=== PATIENT | male | born 1940 | race Caucasian/White ===

== ENCOUNTER → 2018-09-25 | Outpatient (CLI) | payer MEDICARE, OTHER | LOC: COL.RAD 10:09 | DX: E21.3 Hyperparathyroidism, unspecified (principal) | CPT/HCPCS: A9500 ==

== ENCOUNTER → 2018-10-30 | Outpatient (REF) | LOC: ZMSC 14:45 | DX: Z01.89 Encounter for other specified special examinations (principal) ==

== ENCOUNTER 2024-02-29 00:52 | Inpatient (IN) | payer MEDICARE, OTHER ==
[2024-02-29] VITALS (9 sets, daily range): BP systolic 106–138; BP diastolic 63–76; PULSE 58–84; TEMP 97.5–97.9
[~2024-02-29] VITALS: Ht 188 cm; Wt 81.1 kg
--- NOTE | 2024-02-29 03:20 | NUR ---
Patient arrived to the unit at this time with daughter. States he does have some pain but not much. Water provided. Assessment and Med rec complete. IV in left forearm flushes easily with no complications. Fall risk precautions put in place. All questions answered at this time. Oriented patient to room, bed, call light, phone, and bathroom. Call light and personal items in reach. Bed in low position and bed alarm on.
[2024-02-29] MEDS ORDERED: oxyCODONE 5 MG TAB PO PRN (04:00)
[2024-02-29] MEDS ORDERED: Vancomycin 1.5 GM,Special Dose/Pharmacy Prepared 1.5 GM in NS 250 ML IV SCH (04:15)
[2024-02-29] MEDS ORDERED: NS 1,000 ML IV SCH (04:15)
[2024-02-29] MEDS ORDERED: Ondansetron 4 MG/2 ML VIAL IV PRN (04:15)
[2024-02-29] MEDS ORDERED: Acetaminophen 325 MG TAB PO PRN ×2 (04:15)
--- NOTE | 2024-02-29 05:13 | NUR ---
Vancomycin Initial Dosing Pharmacy Note Ordering provider: Florinda Diaz E., MD Indication/duration: Foot wound with osteomyelitis Relevant comorbidities: Unk LABS: (From OSH) WBC = 13, SCr = 1.1 Recommendation: Will draw troughs and follow levels. Loading dose: 2 grams given at OSH 02/28/24 @ 23:10 Maintenance dose: 750 mg every 12 hours Trough goal: 15-20 ug/mL
[2024-02-29] MEDS ORDERED: Glucagon 1 MG VIAL IM PRN (05:45)
[2024-02-29] MEDS ORDERED: Dextrose (Glucose) 15 GM (4 x 3.75 GM) Chewable TABLET PACK PO PRN (05:45)
[2024-02-29] MEDS ORDERED: Dextrose 50% Water 25 GM/50 ML SYRINGE IV PRN (05:45)
--- NOTE | 2024-02-29 05:45 | NUR ---
Patient resting in bed with eyes closed. Respirations even and unlaborded. No signs of pain at this time. Call light and persoanl items in reach. Bed in low position and bed alarm on.
[2024-02-29 06:41] LABS: BASO % 0.3 % (0.0-2.0); EOS # 0.1 K/mm3 (0.0-0.7); EOS % 0.4 % (0.0-4.0); GRAN % 67.8 % (42.2-75.2); HEMOGLOBIN 11.8 g/dl (13.5-18.0); LYMPH # 2.3 K/mm3 (1.2-3.4); MEAN CELL VOLUME 85 fl (80.0-100.0); MEAN CORPUSCULAR HEMOGLOBIN 29 pg (27-31); MEAN CORPUSCULAR HGB CONC 34 g/dl (33.0-37.0); MEAN PLATELET VOLUME 9.2 fl (7.4-10.4); MONO # 1.3 K/mm3 (0.1-0.6); MONO % 11.2 % (1.7-9.3); PLATELET COUNT 377 K/mm3 (130-400); RED BLOOD COUNT 4.04 M/mm3 (4.20-5.60)
[2024-02-29 06:47] LABS: HEMATOCRIT 34.4 % (42.0-52.0)
[2024-02-29 06:54] LABS: ERYTHROCYTE SEDIMENTATION RATE 90 mm/hr (0-30)
[2024-02-29 07:00] LABS: ALBUMIN 2.8 g/dL (3.4-4.8); BILIRUBIN,TOTAL 0.6 mg/dL (0.2-1.2); CALCIUM 9.4 mg/dL (8.4-10.2); POTASSIUM 3.6 mEq/L (3.5-4.5); TOTAL PROTEIN 7.3 g/dl (6.2-8.1)
[2024-02-29] MEDS ORDERED: HCTZ 25MG TAB25 MG PO (07:03)
[2024-02-29] MEDS ORDERED: ZYLOPRIM 100MG100 MG PO (07:03)
[2024-02-29] MEDS ORDERED: LIPITOR 10MG10 MG PO (07:04)
[2024-02-29] MEDS ORDERED: KAPSPARGO SPRIN25 MG PO (07:05)
[2024-02-29] MEDS ORDERED: NIASPAN 500MG500 MG PO (07:37)
[2024-02-29] MEDS ORDERED: GLUCOPHAGE500 MG/TAB PO (07:38)
[2024-02-29] MEDS ORDERED: ASPIRIN 81M81 MG/TA2 PO (07:38)
[2024-02-29] MEDS ORDERED: MULTI-VITAMIN W1 TA1 PO (07:39)
[2024-02-29] MEDS ORDERED: EPA FISH OIL1 SGL PO (07:39)
[2024-02-29] MEDS ORDERED: JARDIANCE25 PO (07:40)
[2024-02-29] MEDS ORDERED: TRULICITY3 MG/0.5 M SQ (07:43)
[2024-02-29] MEDS ORDERED: Insulin Lispro (HumaLOG) SQ SCH (08:00)
[2024-02-29] MEDS ORDERED: Sennosides/Docusate 8.6-50 MG TAB PO SCH (09:00)
--- NOTE | 2024-02-29 11:10 | NUR ---
Patient alert and oriented x4. Shift assessment complete this morning. Patient resting in bed with eyes closed, arouses to voice. Denies increase in pain. Zosyn infusing per orders through left forearm IV as well as NS. Right foot is swollen and red, noted to appear curved. Patient states the curvature came with the infection. Closed ulcers/popped blisters noted to right foot. Abrasion noted to left ankle with bandaid covering it. Call light within reach, all needs met at this time.
--- NOTE | 2024-02-29 11:54 | NUR ---
toll test worker met with pt to discuss discharge planning. He reports to lives with his , Ladonna [phone] in [place]. Pt states his PCP is Mansi Curiel and obtains medications from [facility] with no difficulties. He reports to be independent with ADLS and uses no DME. Pt does not have a DPOA-HC and declines one, but accepted a copy to review. Pt reports he is "unsteady due to his foot problems." PT/OT pending Discharge Plan: tbd after evals
[2024-02-29] MEDS ORDERED: GLUCOPHAGE XR500 M1 PO (12:40)
[2024-02-29] MEDS ORDERED: Gadoterate 20 ML VIAL IV ONE (13:12)
--- NOTE | 2024-02-29 19:37 | NUR ---
Call received after patient went to MRI. Orders obtained from Sowmya Lambert for surgery tomorrow on patient's right foot. Orders entered into computer. Discussed NPO status at midnight with patient, patient verbalized understanding. Denies pain. Sitting up in recliner with call light in reach, Vancomycin infusing per orders through left forearm IV with NS. All needs met at this time.
--- NOTE | 2024-02-29 20:45 | NUR ---
Patient resting in bed. States he has some pain but denies needs for pain meds at this time. Snacks provided. Assessment complete. IV in left forearm infusing with no complications. Call light and personal items in reach. Bed in low position and bed alarm on.
[2024-02-29] MEDS ORDERED: Niacin SA 250 MG CAP PO SCH (21:00)
[2024-02-29] MEDS ORDERED: Atorvastatin 10 MG TAB PO SCH (21:00)
[2024-03-01] VITALS (17 sets, daily range): BP systolic 112–152; BP diastolic 62–92; PULSE 61–88; TEMP 97.1–98.4
[2024-03-01 05:58] LABS: BASO # 0.1 K/mm3 (0.0-0.2); BASO % 0.5 % (0.0-2.0); EOS # 0.1 K/mm3 (0.0-0.7); EOS % 0.9 % (0.0-4.0); GRAN # 5.9 K/mm3 (1.4-6.5); GRAN % 57.4 % (42.2-75.2); HEMOGLOBIN 11.2 g/dl (13.5-18.0); LYMPH # 3.1 K/mm3 (1.2-3.4); LYMPH % 30.4 % (20.0-51.0); MEAN CELL VOLUME 87 fl (80.0-100.0); MEAN CORPUSCULAR HEMOGLOBIN 29 pg (27-31); MEAN CORPUSCULAR HGB CONC 34 g/dl (33.0-37.0); MONO % 9.6 % (1.7-9.3); PLATELET COUNT 347 K/mm3 (130-400); RED BLOOD COUNT 3.81 M/mm3 (4.20-5.60); REDCELL DISTRIBUTION WIDTH-CV 14.3 % (11.5-14.5)
[2024-03-01 06:02] LABS: HEMATOCRIT 33.2 % (42.0-52.0)
[2024-03-01 06:17] LABS: CREATININE, serum 1.06 mg/dL (0.72-1.25); POTASSIUM 3.5 mEq/L (3.5-4.5)
--- NOTE | 2024-03-01 06:25 | NUR ---
Patient resting in bed with eyes closed. Respirations even and unlaborded. No signs of pain or distress at this time. No changes over night. Call light and personal items in reach. Bed in low position and bed alarm on.
[2024-03-01] MEDS ORDERED: LR 1,000 ML IV SCH (07:45)
[2024-03-01] MEDS ORDERED: Lidocaine PF 2% (20 MG/ML) 5 ML VIAL ONE (09:34)
[2024-03-01] MEDS ORDERED: Ondansetron 4 MG/2 ML VIAL ONE (10:57)
[2024-03-01] MEDS ORDERED: Ondansetron 4 MG/2 ML VIAL IV PRN ×2 (11:00→11:30)
[2024-03-01] MEDS ORDERED: Naloxone 0.4 MG/ML VIAL IV PRN (11:00)
[2024-03-01] MEDS ORDERED: oxyCODONE 5 MG TAB PO PRN (11:00)
[2024-03-01] MEDS ORDERED: fentaNYL 50 MCG/ML 1 ML SYRINGE/VIAL [PACU/SDC ONLY] IV PRN (11:30)
[2024-03-01] MEDS ORDERED: hydrALAZINE 20 MG/ML 1 ML VIAL IV PRN (11:30)
[2024-03-01] MEDS ORDERED: HYDROmorphone 1 MG/1 ML SYRINGE [PACU/SDC ONLY] IV PRN (11:30)
[2024-03-01] MEDS ORDERED: Meperidine 50 MG/ML 1 ML VIAL IV PRN (11:30)
--- NOTE | 2024-03-01 11:54 | NUR ---
Patient alert and oriented x4. Denies pain. Maintained NPO status this morning for surgery to right foot. PICC line orders obtained from Ortho, advanced IV services called. PICC placed to right upper arm. Tolerating activity well. Right foot continues to be red, swollen, and appears crooked. Patient left unit for surgery around 1015.
--- NOTE | 2024-03-01 13:03 | NUR ---
Patient returned to unit around 1220. VSS. Patient alert and oriented x4, states he feels groggy. Tolerating sips of water well. Able to follow verbal commands. Stable on room air. NS infusing with Zosyn per orders through PICC line. SCD on left leg. Right leg cast is CDI, extremity elevated with ice on it. Patient denies pain. Call light within reach, all needs met at this time. Bed alarm on.
[2024-03-01 14:42] LABS: BASO # 0.1 K/mm3 (0.0-0.2); BASO % 0.6 % (0.0-2.0); EOS # 0.1 K/mm3 (0.0-0.7); EOS % 0.7 % (0.0-4.0); GRAN # 6.6 K/mm3 (1.4-6.5); GRAN % 62.8 % (42.2-75.2); HEMOGLOBIN 10.9 g/dl (13.5-18.0); LYMPH # 2.9 K/mm3 (1.2-3.4); LYMPH % 27.6 % (20.0-51.0); MEAN CELL VOLUME 90 fl (80.0-100.0); MEAN CORPUSCULAR HEMOGLOBIN 29 pg (27-31); MEAN CORPUSCULAR HGB CONC 32 g/dl (33.0-37.0); MEAN PLATELET VOLUME 8.8 fl (7.4-10.4); MONO # 0.8 K/mm3 (0.1-0.6); MONO % 7.2 % (1.7-9.3); PLATELET COUNT 373 K/mm3 (130-400); RED BLOOD COUNT 3.82 M/mm3 (4.20-5.60); REDCELL DISTRIBUTION WIDTH-CV 14.4 % (11.5-14.5)
[2024-03-01 14:44] LABS: HEMATOCRIT 34.2 % (42.0-52.0)
--- NOTE | 2024-03-01 16:26 | NUR ---
Patient remains stable and A&Ox4. Denies pain or need for pain medication. Splint to right foot remains CDI. Patient expressed concern over getting back to baseline following recovery, due to his recovery declining from surgery in January. Patient does not like not bearing weight on right foot, but was encouraged to follow doctor's orders in order to heal properly. Verbalized understanding. Call light within reach, all needs met at this time.
--- NOTE | 2024-03-01 20:00 | NUR ---
Patient resting in bed. Denies any pain or needs at this time. Assessment complete. IV in left forearm flushes easily with no complications. PICC line infusing with no complications. Call light and personal items in reach. Bed in low position and bed alarm on.
[2024-03-02] VITALS (9 sets, daily range): BP systolic 133–145; BP diastolic 73–86; PULSE 64–89; TEMP 97.5–98.3
--- NOTE | 2024-03-02 02:00 | NUR ---
Hospitalist Melvin called for patient stating he has been constipated and would like something to help him go. Recieved orders for one time dose of 40g Lactulose. Med given
[2024-03-02] MEDS ORDERED: Lactulose Oral Soln 10 GM/15 ML CUP PO ONE (02:15)
[2024-03-02 06:16] LABS: HEMOGLOBIN 10.9 g/dl (13.5-18.0); MEAN CELL VOLUME 87 fl (80.0-100.0); MEAN CORPUSCULAR HEMOGLOBIN 29 pg (27-31); MEAN CORPUSCULAR HGB CONC 33 g/dl (33.0-37.0); MEAN PLATELET VOLUME 8.7 fl (7.4-10.4); PLATELET COUNT 393 K/mm3 (130-400); RED BLOOD COUNT 3.74 M/mm3 (4.20-5.60); REDCELL DISTRIBUTION WIDTH-CV 14.2 % (11.5-14.5)
--- NOTE | 2024-03-02 06:20 | NUR ---
Patient resting in bed. Denies any pain or needs this morning. Patient stated he was constipated and wanted something to help him go, Lactulose given per hospitalist order. No other changes over night. Call light and personal items in reach. Bed in low position and bed alarm on.
[2024-03-02 06:23] LABS: HEMATOCRIT 32.7 % (42.0-52.0)
[2024-03-02 06:34] LABS: CALCIUM 8.6 mg/dL (8.4-10.2); CREATININE, serum 0.91 mg/dL (0.72-1.25); POTASSIUM 3.7 mEq/L (3.5-4.5)
[2024-03-02 07:34] LABS: EOSINOPHIL 1 % (0-4); LYMPHOCYTE 31 % (20.0-51.0); NEUTROPHILS 65 % (42.0-75.2)
--- NOTE | 2024-03-02 08:00 | NUR ---
Patient laying in bed sleeping, easily awakened with verbal command. A&Ox4. VSS. IV CDI, fluids infusing. Denies pain and discomfort. RT leg dressed. Call light within reach. Bed alarm on
[2024-03-02] MEDS ORDERED: Polyethylene Glycol 3350 119 GM BOTTLE PO SCH (09:00)
[2024-03-02] MEDS ORDERED: Polyethylene Glycol 3350 17 GM PDS PO SCH (09:00)
[2024-03-02] MEDS ORDERED: Sennosides/Docusate 8.6-50 MG TAB PO PRN (10:15)
--- NOTE | 2024-03-02 10:41 | NUR ---
Initial visit; Patient said Intermediate Accountant could keep him in her prayers, that he is stressing about his latest foot surgery and the infection. Intermediate Accountant mentioned that she would like to pray for healing of the infection and healing of his body from diabetes and foot issues. He wanted to know if Intermediate Accountant has an office here. Intermediate Accountant let him know she is available to him, to listen and offer prayer and [employer].
--- NOTE | 2024-03-02 16:17 | NUR ---
boat worker attended clinical rounding and was informed patient's cultures are pending and he could potentially switch to PO abox. He will likely stay through the weekend. SILVERIO met with pt and provided [email or web address] list of HH services, in the event he is able to go home on po abox. Pt states he will review, but his daughter wants him to go to [facility]. SW faxed [facility] referral. SILVERIO spoke with pt's daughter, Doris who requested the referral. SILVERIO advised pt could likely go home Tuesday and might not need IV ABOX. She would like him to still go from a rehab standpoint. SILVERIO stated she will send it and see if insurance will approve swing bed as he is also reccomended for home upon discharge. Daughter reports pt has traditional medicare. SILVERIO left voicemail to Shipper, Mary to assess if pt has traditional medicare. Discharge Plan: home with HH vs [facility]
--- NOTE | 2024-03-02 21:57 | NUR ---
UPON SHIFT ASSESSMENT, ANAY WAS AMBULATING TO BATHROOM WITH NO ALBERTO NOTED. RT FOOT DRESSING IS CDI AND PATIENT IS AFEBRILE. DIST PULSES AND SENSATION GOOD. VS WNL. PATIENT DENIES PAIN AT THIS TIME. HE C/O OF CONSTIPATION LASTING "SEVERAL DAYS". INTERVENTIONS IN PLACE-MIRALAX AND SENOKOT. OFFERED PATIENT PRUNE JUICE WHICH HE REFUSED. BOWEL SOUNDS AUDIBLE. CALL LIGHT WITHIN REACH BED ALARM ON.
[2024-03-03] VITALS (13 sets, daily range): BP systolic 128–155; BP diastolic 78–91; PULSE 70–84; TEMP 97.5–98.3
[2024-03-03 06:59] LABS: HEMOGLOBIN 11.1 g/dl (13.5-18.0); MEAN CELL VOLUME 87 fl (80.0-100.0); MEAN CORPUSCULAR HEMOGLOBIN 29 pg (27-31); MEAN CORPUSCULAR HGB CONC 34 g/dl (33.0-37.0); MEAN PLATELET VOLUME 8.6 fl (7.4-10.4); PLATELET COUNT 401 K/mm3 (130-400); RED BLOOD COUNT 3.79 M/mm3 (4.20-5.60); REDCELL DISTRIBUTION WIDTH-CV 14.2 % (11.5-14.5)
[2024-03-03 07:18] LABS: CALCIUM 8.8 mg/dL (8.4-10.2); CREATININE, serum 0.88 mg/dL (0.72-1.25); POTASSIUM 3.7 mEq/L (3.5-4.5)
[2024-03-03 08:17] LABS: BAND 4 % (0-10); EOSINOPHIL 2 % (0-4); LYMPHOCYTE 23 % (20.0-51.0); METAMYELOCYTE 1 % (0-0); NEUTROPHILS 65 % (42.0-75.2); PLATELET ESTIMATE INCREASED (NORMAL)
--- NOTE | 2024-03-03 11:54 | NUR ---
Assessment completed this am. Pt c/o constipation. Scheduled Miralax and ducolax administered and patient reports that he had good results. Pt also showered- RLE and PICC covered and secured. Pt uses walker to ambulate- this nurse noted patient was placing partial weight when ambulating- educated on NWB status and patient verbalized understanding.
[2024-03-03] MEDS ORDERED: Furosemide 40 MG TAB PO SCH (15:45)
--- NOTE | 2024-03-03 18:04 | NUR ---
Pt pleasant and compliant. Denies pain or needs at this time.
--- NOTE | 2024-03-03 20:04 | NUR ---
CALL PLACED TO [facility]. PATIENT'S PLATELET COUNT-401 AND PATIENT HAS ONLY SCDS PROPHYLACTICS FOR DVT (WHICH HE OFTEN REFUSES TO WEAR D/T NEUROPATHY). TORB FOR 5000 UNITS SQ HEPAIN GIVEN. EDUCATION PROVIDED TO PATIENT ON NEED FOR HEPARIN TO PREVENT DVT. PATIENT VOICED UNDERSTANDING.
--- NOTE | 2024-03-03 20:30 | NUR ---
UPON SHIFT ASSESSMENT, ANAY WAS AWAKE IN BED AND AXO X 4. DRESSING TO RT FOOT IS CDI. PATIENT EDUCATION WAS PROVIDED ON NO WEIGHT BEARING ON RT FOOT. CBD WNL FOR AFFECTED LIMB. VS ARE WNL AND PATIENT DENIES PAIN OR SOA AT THIS TIME. BG ELEVATED AND REQUIRED SLIDING SCALE INSULIN. NO NEEDS STATED. CALL LIGHT WITHIN REACH AND BED ALARM ON.
[2024-03-03] MEDS ORDERED: Heparin 5,000 UNITS/ML 1 ML VIAL SQ SCH (21:00)
[2024-03-04] VITALS (9 sets, daily range): BP systolic 116–171; BP diastolic 72–82; PULSE 41–85; TEMP 97.3–98.2
[2024-03-04 06:37] LABS: MEAN CELL VOLUME 87 fl (80.0-100.0); MEAN CORPUSCULAR HGB CONC 33 g/dl (33.0-37.0); RED BLOOD COUNT 2.76 M/mm3 (4.20-5.60); REDCELL DISTRIBUTION WIDTH-CV 14.1 % (11.5-14.5)
[2024-03-04 06:49] LABS: HEMATOCRIT 24.1 % (42.0-52.0); HEMOGLOBIN 7.9 g/dl (13.5-18.0); MEAN CORPUSCULAR HEMOGLOBIN 29 pg (27-31); PLATELET COUNT 514 K/mm3 (130-400)
[2024-03-04 06:50] LABS: MEAN PLATELET VOLUME 8.7 fl (7.4-10.4)
[2024-03-04 06:52] LABS: CALCIUM 8.7 mg/dL (8.4-10.2); CREATININE, serum 0.86 mg/dL (0.72-1.25); POTASSIUM 3.8 mEq/L (3.5-4.5)
[2024-03-04 07:34] LABS: BAND 2 % (0-10); EOSINOPHIL 2 % (0-4); HYPOCHROMIA 1+; LYMPHOCYTE 34 % (20.0-51.0); NEUTROPHILS 58 % (42.0-75.2); PLATELET ESTIMATE INCREASED (NORMAL)
[2024-03-04 07:35] LABS: OVALOCYTES 1+
--- NOTE | 2024-03-04 07:48 | NUR ---
Patient sitting up in bed, A&Ox4. VSS. IV CDI, fluids infusing. Denies pain and discomfort. RT leg CDI. Seizure precautions in place. Call light within reach. Bed alarm on
[2024-03-04 08:29] LABS: HEMATOCRIT 32.2 % (42.0-52.0); HEMOGLOBIN 10.8 g/dl (13.5-18.0)
--- NOTE | 2024-03-04 19:34 | NUR ---
Patient requested some melatonin with his evening meds. Called hospitalistMelvin, and new order received.
--- NOTE | 2024-03-04 20:39 | NUR ---
Shift assessment complete. Patient denies any pain at this time. IV zosyn currently infusing at 25 mL/hr. Vital signs stable on room air. Call light is within reach. Bed is locked and in low position.
[2024-03-04] MEDS ORDERED: Melatonin 3 MG TAB PO SCH (21:00)
[2024-03-05] VITALS (12 sets, daily range): BP systolic 114–136; BP diastolic 60–79; PULSE 40–85; TEMP 97.4–98
--- NOTE | 2024-03-05 05:08 | NUR ---
PCT took patient's 0400 vitals and he had a pulse of 40 bpm. RN rechecked vital signs and found a manual pulse of 35. Called hospitalist, Melvin SANTANA, and received orders to place patient on telemetry monitoring at this time.
--- NOTE | 2024-03-05 05:31 | NUR ---
Telemetry leads placed. Patient denies any chest pain, palpitations, shortness of breath.
--- NOTE | 2024-03-05 05:39 | NUR ---
Patient's telemetry monitoring shows runs of a-fib, which there is currently no documented history of. Contacted Melvin SANTANA, advised to continue monitoring at this time
[2024-03-05 06:28] LABS: HEMOGLOBIN 10.8 g/dl (13.5-18.0); MEAN CELL VOLUME 86 fl (80.0-100.0); MEAN CORPUSCULAR HEMOGLOBIN 29 pg (27-31); MEAN CORPUSCULAR HGB CONC 34 g/dl (33.0-37.0); MEAN PLATELET VOLUME 8.6 fl (7.4-10.4); RED BLOOD COUNT 3.72 M/mm3 (4.20-5.60); REDCELL DISTRIBUTION WIDTH-CV 14.1 % (11.5-14.5)
[2024-03-05 06:35] LABS: PLATELET COUNT 402 K/mm3 (130-400)
[2024-03-05 06:54] LABS: CALCIUM 8.5 mg/dL (8.4-10.2); CREATININE, serum 1.03 mg/dL (0.72-1.25); MAGNESIUM 1.9 mg/dL (1.6-2.6); POTASSIUM 3.7 mEq/L (3.5-4.5)
[2024-03-05 07:08] LABS: BAND 1 % (0-10); EOSINOPHIL 2 % (0-4); LYMPHOCYTE 30 % (20.0-51.0); NEUTROPHILS 58 % (42.0-75.2); PLATELET ESTIMATE INCREASED (NORMAL)
--- NOTE | 2024-03-05 07:49 | NUR ---
Patient sitting up in bed, A&Ox4. VSS. IV CDI, fluids infusing. Denies pain and discomfort. RT leg dressed, CDI. Call light within reach. Bed alarm on
[2024-03-05] MEDS ORDERED: Amoxicillin/Clavulanate K+ 875/125 MG TAB PO SCH (10:15)
--- NOTE | 2024-03-05 14:54 | NUR ---
Patternmaker Metal spoke with DJ at [facility] who requested updates. SW provided updates via fax (#[phone]). SILVERIO followed up with DJ who advised they have insurance auth and can accept. SILVERIO advised discharge may be tomorrow. SILVERIO contacted patient's daughter, Doris to provide update. Doris advised family will be able to transport when ready for discharge. SILVERIO also met with patient at bedside to provide update. Discharge Plan; [facility]
--- NOTE | 2024-03-05 21:13 | NUR ---
Shift assessment complete. Patient is currently denies any pain. He has been advised to use the provided knee scooter and avoid bearing any weight on the right lower extremity, however when RN entered the room he was up without the knee scooter. RN again advised patient to use the knee scooter. Denies any chest pain, palpitations, shortness of breath. Call light is within reach. Bed locked and in low position.
[2024-03-06] VITALS (7 sets, daily range): BP systolic 122–139; BP diastolic 70–78; PULSE 71–78; TEMP 97.9–98.7
[2024-03-06 07:06] LABS: HEMOGLOBIN 11.4 g/dl (13.5-18.0); MEAN CELL VOLUME 86 fl (80.0-100.0); MEAN CORPUSCULAR HEMOGLOBIN 29 pg (27-31); MEAN CORPUSCULAR HGB CONC 34 g/dl (33.0-37.0); MEAN PLATELET VOLUME 8.4 fl (7.4-10.4); PLATELET COUNT 365 K/mm3 (130-400); RED BLOOD COUNT 3.93 M/mm3 (4.20-5.60); REDCELL DISTRIBUTION WIDTH-CV 14.2 % (11.5-14.5)
[2024-03-06 07:08] LABS: HEMATOCRIT 33.8 % (42.0-52.0)
[2024-03-06 07:27] LABS: CALCIUM 8.3 mg/dL (8.4-10.2); CREATININE, serum 0.8 mg/dL (0.72-1.25); POTASSIUM 3.9 mEq/L (3.5-4.5)
[2024-03-06 07:36] LABS: BAND 2 % (0-10); EOSINOPHIL 1 % (0-4); LYMPHOCYTE 21 % (20.0-51.0); METAMYELOCYTE 1 % (0-0); NEUTROPHILS 69 % (42.0-75.2); PLATELET ESTIMATE NORMAL (NORMAL)
[2024-03-06] MEDS ORDERED: AMOXICILLIN 8751 TAB PO (08:24)
[2024-03-06] MEDS ORDERED: PROBIOTIC BLEN1 EACH PO (08:54)
--- NOTE | 2024-03-06 13:43 | NUR ---
Patient alert and oriented x4. Shift assessment complete this morning. Patient denies pain. Tolerating food and fluids well. Dressing to right foot CDI. Discharge orders obtained as well as orders for PICC removal. [facility] removed PICC to right upper arm, patient layed flat for 30 minutes following removal. Telemetry off. Currently waiting for patient's daughter to pick patient up and take to [facility] facility.
--- NOTE | 2024-03-06 14:31 | NUR ---
Slat Twister attended clinical rounds with the team and patient is ready for discharge today. SILVERIO contacted DJ at [facility] and confirmed they will accept today. SILVERIO faxed discharge orders then provided report numbers to Hospitalist and RN. SILVERIO met with patient to present and review IM form. Patient verbalized understanding then provided signature. SILVERIO placed form in chart then provided copy to patient. SILVERIO spoke with patient's daughter, Doris and she plans to apple picking supervisor patient at 1430. SILVERIO provided this time to DJ who is agreeable to this time. SILVIO requested patient's family bring his Trulicity and Jardance. SILVERIO spoke with Doris about this and she stated they would. Discharge Plan: [facility]
--- NOTE | 2024-03-06 15:32 | NUR ---
Patient's daughter here to pick patient up. Transfer paperwork given to daughter to give to [facility] facility. Patient dressed and escorted to daughter's car via wheelchair with belongings. Report called to [place] .
== END 2024-03-06 15:30 | disposition swing bed (61) | DRG 857 ==
LOC: MEDICAL 00:52
PROVIDERS: Orthopaedic Surgery; Physician Assistant; ADMIT Hospitalist
PROC: 0JBQ0ZZ Excision of Right Foot Subcutaneous Tissue and Fascia, Open Approach (ICD-10-PCS; 2024-03-01)
PROC: 02HV33Z Insertion of Infusion Device into Superior Vena Cava, Percutaneous Approach (ICD-10-PCS; principal; 2024-03-01 10:30)
DX: T81.49XA Infection following a procedure, other surgical site, initial encounter (principal); E44.0 Moderate protein-calorie malnutrition; L02.611 Cutaneous abscess of right foot; L03.115 Cellulitis of right lower limb; M86.8X7 Other osteomyelitis, ankle and foot; E11.610 Type 2 diabetes mellitus with diabetic neuropathic arthropathy; E11.42 Type 2 diabetes mellitus with diabetic polyneuropathy; M10.9 Gout, unspecified; I10 Essential (primary) hypertension; I49.3 Ventricular premature depolarization; M19.90 Unspecified osteoarthritis, unspecified site; M62.81 Muscle weakness (generalized); E78.5 Hyperlipidemia, unspecified; E87.6 Hypokalemia; Y83.8 Other surgical procedures as the cause of abnormal reaction of the patient, or of later complication, without mention of misadventure at the time of the procedure; E11.69 Type 2 diabetes mellitus with other specified complication; I48.91 Unspecified atrial fibrillation; K59.00 Constipation, unspecified; E11.621 Type 2 diabetes mellitus with foot ulcer; L97.519 Non-pressure chronic ulcer of other part of right foot with unspecified severity; Z79.84 Long term (current) use of oral hypoglycemic drugs; Z89.421 Acquired absence of other right toe(s); Z79.82 Long term (current) use of aspirin; Z79.899 Other long term (current) drug therapy; Z91.199 Patient's noncompliance with other medical treatment and regimen due to unspecified reason; Z23 Encounter for immunization; Z68.22 Body mass index [BMI] 22.0-22.9, adult
CPT/HCPCS: A9575; C1751; J1644; J1815; J2405; J2543; J2704; J3370; J7030; J7050; Q3014